=== PATIENT | female | born 1995 | race Caucasian/White ===

== ENCOUNTER 2021-01-16 19:45 | Emergency (ER) | payer OTHER ==
[~2021-01-16 19:45] MED LIST: COLACE 100MG C100 MG PO; IBUPROFEN600 MG PO; NORCO 5-325 TA1 EACH PO; PRENATAL VITAM1 EAC3 PO
[2021-01-16 20:33] LABS: HEMOGLOBIN 13.9 gm/dl (12.3-15.3); RED BLOOD COUNT 4.57 M/UL (4.00-5.10)
[2021-01-16 20:57] LABS: BUN/CREATININE RATIO 19 (0-10)
[2021-01-16] MEDS ORDERED: PROTONIX40 MG PO (22:48)
[2021-01-16] MEDS ORDERED: MYLANTA MAXIMU355 ML PO (22:48)
== END 2021-01-16 23:07 | disposition home or self-care (01) ==
LOC: ER1 19:45
PROVIDERS: Physician Assistant
DX: K21.9 Gastro-esophageal reflux disease without esophagitis (principal); Z79.899 Other long term (current) drug therapy
CPT/HCPCS: 71045; 80053; 82550; 82553; 83690; 83874; 84484; 84703; 85025; 85379; 93005; 99285; C9113